=== PATIENT | female | born 1995 ===

== ENCOUNTER 2022-10-25 16:00 | Inpatient (IN) | payer OTHER, SELFPAY ==
[2022-10-25 16:33] VITALS: BMI 22.1
[2022-10-25] MEDS ORDERED: hydrALAZINE 20 MG/ML VIAL SLOW IVP PRN (17:42)
[2022-10-25 17:44] LABS: Fetal Membranes Rupture No Membranes Rupture (No Rupture)
[2022-10-25 19:23] LABS: Fetal Membranes Rupture No Membranes Rupture (No Rupture)
[2022-10-25] MEDS ORDERED: Methylergonovine 0.2 MG/ML VIAL IM PRN (19:42)
[2022-10-25] MEDS ORDERED: Tranexamic Acid 1,000 MG/10 ML VIAL IVP PRN (19:42)
[2022-10-25] MEDS ORDERED: Carboprost 250 MCG/ML AMP IM PRN (19:42)
[2022-10-25] MEDS ORDERED: Lidocaine 1% (PF) 30 ML VIAL SC PRN (19:42)
[2022-10-25] MEDS ORDERED: Misoprostol 200 MCG TAB PR PRN (19:42)
[2022-10-25] MEDS ORDERED: Promethazine HCl 25 MG/ML VIAL IM PRN (19:42)
[2022-10-25] MEDS ORDERED: Ondansetron PF 4 MG/2 ML Vial IVP PRN (19:42)
[2022-10-25] MEDS ORDERED: NS w/ Oxytocin 30 units 500 ML IV SCH (19:45)
[2022-10-25] MEDS ORDERED: Lactated Ringer's 1,000 ML IV SCH (19:45)
[2022-10-25 20:29] LABS: Hemoglobin 15.6 g/dL (12.0-15.5); Mean Corpuscular HGB CONC 35.5 g/dL (32.0-36.0); Mean Corpuscular Hemoglobin 33.4 pg (27.0-33.0); Mean Platelet Volume 10.6 fl (7.4-10.4); Platelet Count 206 10x3/uL (150-450); RBC Distribution Width 12.8 % (11.5-14.5); Red Blood Cell (RBC) Count 4.67 10x6/uL (3.90-5.03); White Blood Cell (WBC) Count 14.6 10x3/uL (3.5-10.5)
[2022-10-25 20:47] LABS: Syphilis Antibody Nonreactive (Nonreactive); Syphilis Antibody Index 0.04 S/CO (<1.00 Non-Reactive)
[2022-10-25 20:48] LABS: HBSAg Index 0.15 S/CO (0-0.99); Hep B Surf Ag - L&D Non-Reactive S/CO (NonReactive)
[2022-10-25] MEDS ORDERED: Oxytocin 10 UNITS/ML VIAL ONE (22:38)
[2022-10-25] MEDS ORDERED: Ketorolac Tromethamine 30 MG/ML VIAL ONE (23:23)
[2022-10-26] MEDS ORDERED: Milk Of Magnesia 30 ML UDCUP PO PRN (00:04)
[2022-10-26] MEDS ORDERED: Lanolin Ointment 7 GM TUBE TOP PRN (00:04)
[2022-10-26] MEDS ORDERED: Benzocaine-Menthol 82.5 ML CAN TOP PRN (00:04)
[2022-10-26] MEDS ORDERED: HYDROcodone/Acetaminophen 5/325 mg Tablet PO PRN ×2 (00:04)
[2022-10-26] MEDS ORDERED: hydrALAZINE 20 MG/ML VIAL SLOW IVP PRN (00:04)
[2022-10-26] MEDS ORDERED: Ondansetron PF 4 MG/2 ML Vial IVP PRN (00:04)
[2022-10-26] MEDS ORDERED: Bisacodyl 10 MG SUPP PR PRN (00:04)
[2022-10-26] MEDS ORDERED: Boostrix 0.5 ML (Tdap) VIAL (>/=7 yrs of age) IM ONE (00:04)
[2022-10-26] MEDS ORDERED: Misoprostol 200 MCG TAB VAG PRN (00:04)
[2022-10-26] MEDS ORDERED: Ketorolac Tromethamine 30 MG/ML VIAL IVP SCH (00:45)
[2022-10-26] MEDS ORDERED: NS w/ Oxytocin 30 units 500 ML IV SCH (00:45)
[2022-10-26] MEDS: Ibuprofen 800 MG TAB PO SCH ×3 (05:07→21:27)
[2022-10-26] MEDS: Docusate 100 MG CAP PO SCH ×2 (08:47→21:26)
[2022-10-26] MEDS: Prenatal Vitamin 1 TAB PO SCH (08:47)
[2022-10-26] MEDS: Ferrous Sulfate 325 MG TAB PO SCH (12:02)
[2022-10-27] MEDS: Ibuprofen 800 MG TAB PO SCH (06:09)
[2022-10-27] MEDS: Ferrous Sulfate 325 MG TAB PO SCH ×2 (07:11→07:12)
[2022-10-27 07:50] VITALS: BP 97/58; TEMP 97.9
[2022-10-27] MEDS: Docusate 100 MG CAP PO SCH (09:07)
[2022-10-27] MEDS: Prenatal Vitamin 1 TAB PO SCH (09:07)
== END 2022-10-27 15:05 | disposition home or self-care (01) | DRG 807 ==
LOC: CSHLD/OP 16:00 → CSHLD 19:36 → CSHPP 10-26 01:50
PROVIDERS: ADMIT Obstetrics & Gynecology; ATTEND Obstetrics & Gynecology
PROC: 10E0XZZ Delivery of Products of Conception, External Approach (ICD-10-PCS; principal; 2022-10-25)
PROC: 10907ZC Drainage of Amniotic Fluid, Therapeutic from Products of Conception, Via Natural or Artificial Opening (ICD-10-PCS; 2022-10-25)
DX: O42.02 Full-term premature rupture of membranes, onset of labor within 24 hours of rupture (principal); Z37.0 Single live birth; Z3A.39 39 weeks gestation of pregnancy; F41.9 Anxiety disorder, unspecified; F32.A Depression, unspecified; F90.9 Attention-deficit hyperactivity disorder, unspecified type; Z91.040 Latex allergy status; O69.81X0 Labor and delivery complicated by cord around neck, without compression, not applicable or unspecified
CPT/HCPCS: 36415; 84112; 85027; 86780; 86850; 86900; 86901; 87340; 99285; J1885